=== PATIENT | male | born 1980 | race Caucasian/White ===

== ENCOUNTER 2018-06-29 17:17 | Emergency (ER) | payer MEDICAID, SELFPAY | END 2018-06-29 17:49 | disposition home or self-care (01) | LOC: NAV ERS 17:17 | DX: J06.9 Acute upper respiratory infection, unspecified (principal); F41.9 Anxiety disorder, unspecified; F17.210 Nicotine dependence, cigarettes, uncomplicated; Z79.899 Other long term (current) drug therapy | CPT/HCPCS: 99281 ==

== ENCOUNTER 2020-07-01 10:29 | Emergency (ER) | payer SELFPAY ==
[2020-07-01] MEDS ORDERED: Acetaminophen 500 MG TAB ONE (11:00)
[2020-07-01] MEDS ORDERED: Cephalexin 250 MG CAP ONE (11:00)
[2020-07-01] MEDS ORDERED: TETANUS, DIPHTHERIA TOX,ADULT (TDVAX) 0.5 ML VIAL IM ONE (11:08)
[2020-07-01] MEDS ORDERED: Bacitracin 1 PK ONE (11:08)
[2020-07-01] MEDS ORDERED: Boostrix 0.5 ML (Tdap) VIAL ONE (11:09)
== END 2020-07-01 11:32 | disposition home or self-care (01) ==
LOC: NAV ERS 10:29
DX: L03.116 Cellulitis of left lower limb (principal); Z23 Encounter for immunization
CPT/HCPCS: 90471; 90714; 90715